=== PATIENT | female | born 1990 | race Caucasian/White ===

== ENCOUNTER 2017-12-03 11:42 | Emergency (ER) | payer OTHER ==
[2017-12-03 12:48] LABS: ABS Basophils 0 10^3/ul (0-0.2); ABS Eosinophils 0.3 10^3/ul (0-0.6); ABS Lymphocytes 1.9 10^3/ul (1.0-4.8); ABS Monocytes 0.4 10^3/ul (0-0.8); ABS Neutrophils 2.8 10^3/ul (1.5-7.7); ABS Nucleated RBC 0 10^3/ul; Eosinophil % 4.8 % (0-6); Hematocrit 42 % (35-47); Hemoglobin 14.3 g/dl (12.0-16.0); Lymphocyte % 35.6 % (25-47); Mean Corpuscular HGB Conc 34 g/dl (31-36); Mean Corpuscular Hemoglobin 32 pg (27-31); Mean Corpuscular Volume 94 fL (80-97); Mean Platelet Volume 9 um3 (7.4-10.4); Nucleated Red Blood Cells % 0; Platelet Count 188 10^3/ul (150-450); Red Blood Count 4.49 10^6/ul (4.0-5.4); Red Cell Distribution Width 13 % (10.5-15); White Blood Count 5.5 10^3/ul (3.5-10.8)
[2017-12-03 12:56] LABS: INR 0.94 (0.77-1.02)
--- NOTE | 2017-12-03 14:28 | RAD ---
Indication: Chest pain. Single frontal view of the chest performed at 1325 hours was reviewed. Comparison is made with previous exam dated February 13, 2016. No mediastinal shift is noted. Heart is of normal size and configuration. Lung amador appear clear. AICD device is in place. IMPRESSION: NO ACTIVE CARDIOPULMONARY DISEASE IS NOTED.
[2017-12-03] MEDS ORDERED: NS 0.9% 1000 ML* 1,000 ML BOLUS SCH (15:15)
[2017-12-03] MEDS ORDERED: NS 0.9% 1000 ML* 1,000 ML IV ONE (16:20)
[2017-12-03 18:24] LABS: Urine Appearance Clear; Urine Blood Negative (Negative); Urine Color Yellow; Urine Ketones Negative (Negative); Urine Protein Negative (Negative); Urine Specific Gravity 1.009 (1.010-1.030); Urine Urobilinogen Negative (Negative)
[2017-12-03 19:05] VITALS: BP 87/44
--- NOTE | 2017-12-03 22:38 | ED ---
Chicho Santos Tiffany, scribed for Natasha Lyles MD on 12/03/17 at 1334 . HPI Chest Pain - HPI Summary HPI Summary: The patient is a 27 y/o F presenting to [facility] accompanied by male friend complains of chest pain since yesterday at 15:00. Symptoms aggravated by exertion. Symptoms alleviated by nothing. Denies fever, cough. Had a flu shot this year. Reports feeling more tired than usual these past few days. Was in [facility] this past weekend. Has had less school work than usual. Went to gym yesterday at 18:00 and felt like her heart was working harder than usual. She says the feeling is not right. Feels like twinges and "oldness". States her usual BP is in the 80s. Upon evaluation, pts BP is 93/51, resp 12, sats 99% on room air, heart rate 59. 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 Has an AICD implanted in her chest. Has AICD checked every three months, is due for a checkup in a few weeks. Last echo showed 40-45 ejection fraction. Takes potassium magnesium, Lisinopril, spironolactone every other day, and metoprolol.Pt sees Dr. Garvin and Dr. Keller ([facility]). States she traveled to [facility] in Sep 2017 and felt like she had a sinus infection, bought antibiotics for herself there and took amoxicllin for 2 weeks, with complete resolution of her sinus symptoms. - History of Current Complaint Chief Complaint: EDChestPainROMI Time Seen by Provider: 12/03/17 11:54 Hx Obtained From: Patient, Medical Records Onset/Duration: Started Days Ago - Yesterday at 15:00, Still Present Timing: Constant Initial Severity: Moderate Current Severity: Moderate Pain Intensity: 3 Chest Pain Location: Mid Sternal Chest Pain Radiates: No Character: Dull/Aching Aggravating Factor(s): Exertion Alleviating Factor(s): Nothing Associated Signs and Symptoms: Positive: Chest Pain, Other: - fatigue, feels "old" - Allergy/Home Medications Allergies/Adverse Reactions: Allergies Allergy/AdvReac Type Severity Reaction Status Date / Time MS Azithromycin Allergy Unknown Verified 02/13/16 15:38 [Azithromycin] Reaction Details MS Alcohol [Alcohol] AdvReac Tachycardia Verified 02/13/16 15:38 Home Medications: Home Medications Lisinopril [Lisinopril 2.5 MG-] 2.5 mg PO BID 12/03/17 [History Confirmed ] Metoprolol Succinate XL TAB* [Toprol XL TAB*] 25 mg PO DAILY 12/03/17 [History Confirmed 12/03/17] Potassium Chlor TAB* [Klor Con ER TAB*] 10 meq PO BID 12/03/17 [History Confirmed 12/03/17] Spironolactone TAB* [Aldactone TAB*] 12.5 mg PO DAILY 12/03/17 [History Confirmed 12/03/17] PMH/Surg Hx/FS Hx/Imm Hx Previously Healthy: No Endocrine/Hematology History: Denies: Hx Diabetes Cardiovascular History: Reports: Hx Myocardial Infarction - On Sep 25, 2014 s/p myocarditis, Hx Pacemaker/ICD - 2013 Denies: Hx Hypertension Respiratory History: Reports: Hx Asthma History: Denies: Hx Renal Disease - Surgical History Surgery Procedure, Year, and Place: AICD (Medtronic) 2013 Infectious Disease History: No Infectious Disease History: Denies: Traveled Outside the [place] in Last 30 Days - Family History Known Family History: Negative: Cardiac Disease - Social History 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) Alcohol Use: None Hx Substance Use: No Substance Use Type: Reports: None Hx Tobacco Use: No Smoking Status (MU): Never Smoked Tobacco Review of Systems Positive: Other - Increasing tiredness Positive: Chest Pain Respiratory: Negative Neurological: Negative Psychological: Normal All Other Systems Reviewed And Are Negative: Yes Physical Exam - Summary Physical Exam Summary: Appearance: midly Ill-appearing, mild pain distress, Well-nourished Skin: Warm, color reflects adequate perfusion Head: Normal Head/Face inspection TM's clear, Pharynx clear, no sinus tenderness Eyes: Conjunctiva clear ENT: Normal inspection Neck: Supple, no nodes, no JVD. Respiratory: Lungs clear, Normal breath sounds, no respiratory distress Cardio: low pulse, low blood pressure; S1S2, no murmur, no rub Abdomen: soft, nontender Bowel sounds: present Musculoskeletal: Strength Intact/ ROM intact. No calf tenderness. No edema. Neuro: Alert, muscle tone normal, facial symmetry, speech normal, sensory/motor intact Psychological: Normal Triage Information Reviewed: Yes Vital Signs On Initial Exam: Initial Vitals Temp Pulse Resp BP Pulse Ox 98.6 F 60 17 108/52 100 12/03/17 11:47 12/03/17 11:47 12/03/17 11:47 12/03/17 11:47 12/03/17 11:47 Vital Signs Reviewed: Yes Diagnostics - Vital Signs Vital Signs Temp Pulse Resp BP Pulse Ox 12/03/17 11:47 98.6 F 60 17 108/52 100 - Laboratory Lab Results: Lab Results 12/03/17 12/03/17 12/03/17 Range/Units 12:34 12:34 12:34 WBC 5.5 (3.5-10.8) 10^3/ul RBC 4.49 (4.0-5.4) 10^6/ul Hgb 14.3 (12.0-16.0) g/dl Hct 42 (35-47) % MCV 94 (80-97) fL MCH 32 H (27-31) pg MCHC 34 (31-36) g/dl RDW 13 (10.5-15) % Plt Count 188 (150-450) 10^3/ul MPV 9 (7.4-10.4) um3 Neut % (Auto) 51.0 (38-83) % Lymph % (Auto) 35.6 (25-47) % [place] % (Auto) 8.0 H (0-7) % Eos % (Auto) 4.8 (0-6) % Baso % (Auto) 0.6 (0-2) % Absolute Neuts (auto) 2.8 (1.5-7.7) 10^3/ul Absolute Lymphs (auto) 1.9 (1.0-4.8) 10^3/ul Absolute Monos (auto) 0.4 (0-0.8) 10^3/ul Absolute Eos (auto) 0.3 (0-0.6) 10^3/ul Absolute Basos (auto) 0 (0-0.2) 10^3/ul Absolute Nucleated RBC 0 10^3/ul Nucleated RBC % 0 INR (Anticoag Therapy) 0.94 (0.77-1.02) APTT 27.8 (26.0-36.3) seconds D-Dimer, Quantitative < 200 (Less Than 230) ng/mL Sodium (133-145) mmol/L Potassium (3.5-5.0) mmol/L Chloride (101-111) mmol/L Carbon Dioxide (22-32) mmol/L Anion Gap (2-11) mmol/L BUN (6-24) mg/dL Creatinine (0.51-0.95) mg/dL Est GFR ( Amer) (>60) Est GFR (Non-Af Amer) (>60) BUN/Creatinine Ratio (8-20) Glucose (70-100) mg/dL Lactic Acid (0.5-2.0) mmol/L Calcium (8.6-10.3) mg/dL Magnesium (1.9-2.7) mg/dL Total Bilirubin (0.2-1.0) mg/dL AST (13-39) U/L ALT (7-52) U/L Alkaline Phosphatase (34-104) U/L Total Creatine Kinase (10-223) U/L CK-MB (CK-2) (0.6-6.3) ng/mL Troponin I (<0.04) ng/mL B-Natriuretic Peptide 44 ( - 100) pg/mL Total Protein (6.4-8.9) g/dL Albumin (3.2-5.2) g/dL Globulin (2-4) g/dL Albumin/Globulin Ratio (1-3) TSH Beta HCG, Quant mIU/mL 12/03/17 12/03/17 Range/Units 12:34 12:34 WBC (3.5-10.8) 10^3/ul RBC (4.0-5.4) 10^6/ul Hgb (12.0-16.0) g/dl Hct (35-47) % MCV (80-97) fL MCH (27-31) pg MCHC (31-36) g/dl RDW (10.5-15) % Plt Count (150-450) 10^3/ul MPV (7.4-10.4) um3 Neut % (Auto) (38-83) % Lymph % (Auto) (25-47) % [place] % (Auto) (0-7) % Eos % (Auto) (0-6) % Baso % (Auto) (0-2) % Absolute Neuts (auto) (1.5-7.7) 10^3/ul Absolute Lymphs (auto) (1.0-4.8) 10^3/ul Absolute Monos (auto) (0-0.8) 10^3/ul Absolute Eos (auto) (0-0.6) 10^3/ul Absolute Basos (auto) (0-0.2) 10^3/ul Absolute Nucleated RBC 10^3/ul Nucleated RBC % INR (Anticoag Therapy) (0.77-1.02) APTT (26.0-36.3) seconds D-Dimer, Quantitative (Less Than 230) ng/mL Sodium 138 (133-145) mmol/L Potassium 3.9 (3.5-5.0) mmol/L Chloride 103 (101-111) mmol/L Carbon Dioxide 29 (22-32) mmol/L Anion Gap 6 (2-11) mmol/L BUN 12 (6-24) mg/dL Creatinine 0.79 (0.51-0.95) mg/dL Est GFR ( Amer) 110.7 (>60) Est GFR (Non-Af Amer) 86.0 (>60) BUN/Creatinine Ratio 15.2 (8-20) Glucose 66 L (70-100) mg/dL Lactic Acid 1.5 (0.5-2.0) mmol/L Calcium 10.0 (8.6-10.3) mg/dL Magnesium 1.9 (1.9-2.7) mg/dL Total Bilirubin 0.80 (0.2-1.0) mg/dL AST 21 (13-39) U/L ALT 19 (7-52) U/L Alkaline Phosphatase 36 (34-104) U/L Total Creatine Kinase 104 (10-223) U/L CK-MB (CK-2) 2.4 (0.6-6.3) ng/mL Troponin I 0.00 (<0.04) ng/mL B-Natriuretic Peptide ( - 100) pg/mL Total Protein 7.7 (6.4-8.9) g/dL Albumin 4.8 (3.2-5.2) g/dL Globulin 2.9 (2-4) g/dL Albumin/Globulin Ratio 1.7 (1-3) TSH Pending Beta HCG, Quant < 0.60 mIU/mL Result Diagrams: 12/03/17 12:34 12/03/17 12:34 Lab Statement: Any lab studies that have been ordered have been reviewed, and results considered in the medical decision making process. - Radiology CXR Radiology Interpretation Completed By: Radiologist - NO ACTIVE CARDIOPULMONARY DISEASE IS NOTED. ED physician has reviewed this radiology report. - EKG 11:53 Cardiac Rate: Bradycardia - 59 BPM EKG Rhythm: Sinus Bradycardia ST Segment: Non-Specific Ectopy: None EKG Interpretation: nml AVIVCT, nml QTc, and nml axis EKG Comparison: No Significant Change - Compared with 02/13/16 Re-Evaluation - Re-Evaluation First Eval Re-Evaluation Time: 16:19 Change: Unchanged Comment: Patient still feels weak and tired. BP is 93/53, pulse is 58. Examined ears and throat. They were normal. Second Eval Re-Evaluation Time: 17:10 Change: Unchanged Comment: VS remain same. No new complaints offered. Add inflammatory markers after discussion with Dr. Charanjit Mooney. Third Eval Re-Evaluation Time: 17:55 Change: Unchanged Comment: Continues to feel "old" and tired. Glucose 121 after eating. Fourth Eval Re-Evaluation Time: 19:00 Change: Unchanged Comment: Aware of systolic BP high 80's upon discharge. pt states this is normal for her, and where her cardiologists want her BP and pulse to ease the work of her heart. Chest Pain Course/Dx - Course Course Of Treatment: Allergies noted. Low blood pressure noted. Medications reviewed this visit. EKG no change compared with 02/13/16. Nml CXR. Spoke with monica Pearson from [employer], at 1457, who said patient's single chamber AICD looks normal, is 100% sensing, no arrythmia and has not fired. Flu swab was negative. Checked for CRP, ESR and rechecked sugar, all were normal. Troponins x [address] Discuss[address] with Dr. Charanjit Mooney. No evidence of cardiac event, or infection to suggest myocarditis and AICD is functioning properly. Patient will be discharged with follow up from Dr. Garvin. The patient is agreeable with this plan. - Chest Pain Differential Diagnosis/HQI/PQRI: Acute [place], ACS, Lower Respiratory Infection, Pulmonary Embolism - Diagnoses Provider Diagnoses: Chest pain, AICD (automatic cardioverter/defibrillator) present Is Visit Related: No - Provider Notifications Discussed Care Of Patient With: Cahranjit Mooney Time Discussed With Above Provider: 17:05 Instructed by Provider To: Other - Dr. Mooney advised to check for CRP, ESR and recheck sugar. If these are normal, then patient can follow up with Dr. Garvin. Discharge - Discharge Plan Condition: Stable Disposition: HOME Patient Education Materials: Dehydration (ED), Fatigue (ED) Referrals: [facility] - Abad SAMUEL [Primary Care Provider] - Holly Garvin MD [Medical Doctor] - 3 Days Additional Instructions: Your flu swab was negative. Your cardiac enzymes were zero. We hydrated you with 2 liters of Normal saline. We did not find a definite cause for your fatigue. We discussed your case with Dr. Mooney, the contracts representative information assurance manager. Your glucose initially was 66 (slightly low). Your repeat after eating was 121. The rest of your labs were unremarkable. We did not see any source of infection. Have definite follow up with Dr. Garvin. Return to the ER if any new or worsening symptoms. The documentation as recorded by the Chicho montilla Tiffany accurately reflects the service I personally performed and the decisions made by me, Natasha Lyles MD.
== END 2017-12-03 19:03 | disposition home or self-care (01) ==
LOC: ED 11:42
DX: R07.9 Chest pain, unspecified (principal); Z88.1 Allergy status to other antibiotic agents; I25.2 Old myocardial infarction; Z95.810 Presence of automatic (implantable) cardiac defibrillator; Z79.899 Other long term (current) drug therapy; R00.0 Tachycardia, unspecified; R94.31 Abnormal electrocardiogram [ECG] [EKG]
CPT/HCPCS: 36415; 71045; 80053; 81003; 82550; 82553; 83605; 83735; 83880; 84443; 84484; 84702; 85025; 85379; 85610; 85652; 85730; 86140; 87502; 93005; 96360; 96361; 99282

== ENCOUNTER 2019-04-28 12:45 | Emergency (ER) | payer OTHER ==
[2019-04-28 13:05] VITALS: BP 85/53
--- NOTE | 2019-04-28 13:39 | UC ---
Complaint Female HPI - HPI Summary HPI Summary: 28-year-old female with burning on urination and frequency since yesterday. - History Of Current Complaint Chief Complaint: UCGU Stated Complaint: URINE ISSUE Time Seen by Provider: 04/28/19 13:39 Hx Obtained From: Patient Hx Last Menstrual Period: mirena ?: No Onset/Duration: Gradual Onset Timing: Intermittent Severity Initially: Mild Severity Currently: Mild Pain Intensity: 2 Character: Burning Aggravating Factor(s): Urination Alleviating Factor(s): Nothing Associated Signs And Symptoms: Positive: Negative. Negative: Vaginal Bleeding/ Discharge, Vaginal Discharge, Genital Swelling, Genital Blisters - Allergies/Home Medications Allergies/Adverse Reactions: Allergies Allergy/AdvReac Type Severity Reaction Status Date / Time alcohol Allergy tachu Verified 04/28/19 13:06 azithromycin Allergy unk Verified 04/28/19 13:05 Home Medications: Home Medications Magnesium Oxide TAB* [MagOx 400 TAB*] 1 tab PO DAILY 04/28/19 [History Confirmed 04/28/19] PMH/Surg Hx/FS Hx/Imm Hx Previously Healthy: Yes Respiratory History: Asthma - Surgical History Surgical History: Yes Surgery Procedure, Year, and Place: AICD (Medtronic) 2013 - Family History Known Family History: Negative: Cardiac Disease - Social History Alcohol Use: None Alcohol Amount: per mother pt does not drink do to allergy, per friends, pt drank today. Substance Use Type: None Smoking Status (MU): Never Smoked Tobacco - Immunization History Most Recent Influenza Vaccination: unk Most Recent Tetanus Shot: unk Most Recent Pneumonia Vaccination: unk Review of Systems All Other Systems Reviewed And Are Negative: Yes Genitourinary: Positive: Dysuria, Frequency, Urgency. Negative: Vaginal/Penile Burning, Vaginal/Penile Itching, Vaginal/Penile Discharge, Vaginal/Penile Pain, Vaginal/Penile Tenderness Is Patient Immunocompromised?: No Physical Exam Triage Information Reviewed: Yes Appearance: Well-Appearing, No Pain Distress, Well-Nourished Vital Signs: Initial Vital Signs Temp 98 F 04/28/19 13:02 Pulse 71 04/28/19 13:02 Resp 17 04/28/19 13:02 BP 85/53 04/28/19 13:02 Pulse Ox 100 04/28/19 13:02 Vital Signs Reviewed: Yes Eyes: Positive: Conjunctiva Clear Respiratory: Positive: Lungs clear, Normal breath sounds, No respiratory distress, No accessory muscle use Cardiovascular: Positive: RRR, No Murmur, Pulses Normal, Brisk Capillary Refill Abdomen Description: Positive: Nontender, No Organomegaly, Soft. Negative: CVA Tenderness (R), CVA Tenderness (L) Bowel Sounds: Positive: Present Musculoskeletal Exam: Normal Neurological Exam: Normal Psychological Exam: Normal Skin: Positive: Other Complaint Female Dx - Course Course Of Treatment: Patient is comfortable here. Because medication she takes going to start her on Macrobid 100 mg by mouth twice a day 5 days, she is to increase fluids. Go to the emergency room if she develops fever, chills, back pain or worsening symptoms or vomiting. - Differential Dx/Diagnosis Provider Diagnosis: UTI (urinary tract infection) Discharge - Sign-Out/Discharge Documenting (check all that apply): Patient Departure All imaging exams completed and their final reports reviewed: No Studies - Discharge Plan Condition: Fair Disposition: HOME Prescriptions: Nitrofurantoin Monohyd/M-Cryst [Macrobid 100 mg Capsule] 100 mg PO BID 5 Days # 10 cap Patient Education Materials: Urinary Tract Infection in Women (DC) Referrals: [facility] - Abad SAMUEL [Primary Care Provider] - Additional Instructions: Increase fluids, take the medication with food, follow-up with [facility] if no improvement in 2 or 3 days. Follow-up in the emergency room if you develop fever, chills, back pain or unable keep the medication down. - Billing Disposition and Condition Condition: FAIR Disposition: Home
== END 2019-04-28 13:54 | disposition home or self-care (01) ==
LOC: UCEAST 12:45
DX: N39.0 Urinary tract infection, site not specified (principal); J45.909 Unspecified asthma, uncomplicated
CPT/HCPCS: 81002; 81025; 87077; 87086; 87186; 99212; G0463

== ENCOUNTER 2019-05-07 16:29 | Emergency (ER) | payer OTHER ==
[2019-05-07 17:10] VITALS: BP 90/52
--- NOTE | 2019-05-07 18:36 | UC ---
UC General HPI - HPI Summary HPI Summary: Patient presents to urgent care reporting she feels her urinary tract infections back. Patient was evaluated urgent care on 04/28/19 tightness UTI and put on Macrobid. Patient states she did go for 5 days. Patient states she was good for 1 day and then her symptoms are to come back. Patient reports urinary urgency, frequency and dysuria. No back pain. No nausea vomiting. No fevers or chills. Patient states she has a new sexual partner. Patient states she did have intercourse the day after finishing antibiotics and 1 that was the cause of the infection coming back. Patient denies any vaginal discharge, itching, odor. Patient denies any pain with intercourse. Patient denies any symptoms in her partner. Patient's medications reviewed this visit. Patient uses Mirena ring does not use condoms. Patient states she is not . - History of Current Complaint Chief Complaint: UCGU Stated Complaint: UTI Time Seen by Provider: 05/07/19 17:06 Hx Obtained From: Patient Hx Last Menstrual Period: last week Onset/Duration: Gradual Onset Onset Severity: Mild Current Severity: Mild Pain Intensity: 3 - Allergy/Home Medications Allergies/Adverse Reactions: Allergies Allergy/AdvReac Type Severity Reaction Status Date / Time alcohol Allergy Tachycardia Verified 05/07/19 17:10 azithromycin Allergy unk Verified 05/07/19 17:10 erythromycin base AdvReac Vomiting Verified 05/07/19 17:10 PMH/Surg Hx/FS Hx/Imm Hx Previously Healthy: Yes - Surgical History Surgical History: Yes Surgery Procedure, Year, and Place: AICD (Medtronic) 2013 - Family History Known Family History: Positive: Non-Contributory Negative: Cardiac Disease - Social History Occupation: Student Lives: Dormitory/Roommates Alcohol Use: None Alcohol Amount: per mother pt does not drink do to allergy, per friends, pt drank today. Substance Use Type: Marijuana Smoking Status (MU): Never Smoked Tobacco - Immunization History Most Recent Influenza Vaccination: unk Most Recent Tetanus Shot: unk Most Recent Pneumonia Vaccination: unk Review of Systems All Other Systems Reviewed And Are Negative: Yes Constitutional: Positive: Negative Skin: Positive: Negative Genitourinary: Positive: Dysuria, Frequency, Urgency. Negative: Hematuria, Vaginal/Penile Burning, Vaginal/Penile Itching, Vaginal/Penile Discharge, Vaginal/Penile Pain, Vaginal/Penile Tenderness Is Patient Immunocompromised?: No Physical Exam - Summary Physical Exam Summary: Vital Signs Reviewed: Yes A+Ox3, no distress Eyes: Conjunctiva Clear ENT: Hearing grossly normal neck: supple Respiratory: Positive: No respiratory distress, No accessory muscle use Cardiovascular: skin color reflect adequate perfusion Musculoskeletal Exam: FREDERICK x 4 without difficulty Neurological: Positive: Alert, ambulatory without difficulty Psychological: Positive: Normal Response To proivder Skin: Positive: no rash, no ecchymosis Triage Information Reviewed: Yes Vital Signs: Initial Vital Signs Temp 98.7 F 05/07/19 17:05 Pulse 60 05/07/19 17:05 Resp 14 05/07/19 17:05 BP 90/52 05/07/19 17:05 Pulse Ox 100 05/07/19 17:05 Course/Dx - Course Course Of Treatment: Patient presents for recurrent UTI. Patient was treated for 5 days starting on 04/28. Patient is 3 days ago. This came back. Patient states the came back today after intercourse. Patient with dysuria hematuria. Patient without any back pain, fevers, nausea vomiting. Patient is nontoxic-appearing. On exam vital signs are stable. Non-concerning exam. Patient is noted to have resistance to several isn't on her last urine. We'll do a 10 day course of Macrobid. Recommend patient urinate after intercourse. Also recommended patient consider using a condom this is a new sexual partner. Patient comfortable in agreement with plan. Patient has a Zofran declined Pyridium. Return precautions discussed - Diagnoses Provider Diagnosis: UTI (urinary tract infection) Discharge - Sign-Out/Discharge Documenting (check all that apply): Patient Departure All imaging exams completed and their final reports reviewed: No Studies - Discharge Plan Condition: Stable Disposition: HOME Prescriptions: Nitrofurantoin Monohyd/M-Cryst [Macrobid 100 mg Capsule] 100 mg PO BID #20 cap Patient Education Materials: Urinary Tract Infection in Women (ED) Referrals: [facility] - Abad SAMUEL [Primary Care Provider] - Additional Instructions: - stay well hydrated - drink plenty of non-alcoholic, non caffinated beverages - your urine will be further tested - if you require any changes to your treatment, we will contact you - this usually take 2 days - Contact your primary doctor to arrange a follow-up appointment next week. Contact your doctor or return with questions or concerns - Take your antibiotics exactly as prescribed until gone - Okay to alternate ibuprofen (Advil, Motrin) and Tylenol every 3 hours for pain. Take with food -urinate after intercourse - this may help decrease recurrentce - If your symptoms worsen, fever, vomiting or back pain it is recommended you go to the emergency department - Billing Disposition and Condition Condition: STABLE Disposition: Home
== END 2019-05-07 17:50 | disposition home or self-care (01) ==
LOC: UCEAST 16:29
DX: N39.0 Urinary tract infection, site not specified (principal); Z87.440 Personal history of urinary (tract) infections
CPT/HCPCS: 81002; 87077; 87086; 87186; 99212; G0463